=== PATIENT | male | born 1940 | race American Indian/Alaskan Native ===

== ENCOUNTER 2017-12-19 06:50 | Day surgery (SDC) | payer MEDICARE ==
[2017-12-19] MEDS ORDERED: NACL 0.9% 500 ML 500 ML IV SCH (08:00)
[2017-12-19 08:04] LABS: Basophils % (Auto) 0.4 % (0.0-1.8); Eosinophils # (Auto) 0.1 K/mm3 (0.0-0.4); Eosinophils % (Auto) 1.4 % (0.0-4.3); Hematocrit 34.4 % (35.5-45.6); Hemoglobin 11.4 gm/dl (11.8-15.2); Lymphocytes # (Auto) 1.1 K/mm3 (1.2-5.4); Lymphocytes % (Auto) 24.8 % (13.4-35.0); Mean Corpuscular HGB Conc 33 % (32-34); Mean Corpuscular Volume 76 fl (84-94); Monocytes # (Auto) 0.4 K/mm3 (0.0-0.8); Platelet Count 219 K/mm3 (140-440); Red Blood Count 4.56 M/mm3 (3.65-5.03); Red Cell Distribution Width 14.8 % (13.2-15.2)
[2017-12-19 08:05] LABS: Mean Corpuscular Hemoglobin 25 pg (28-32)
[2017-12-19 08:15] LABS: INR 1.03 (0.87-1.13)
[2017-12-19 08:18] LABS: BUN/Creatinine Ratio 20; Blood Urea Nitrogen 10 mg/dL (9-20); Calcium 9.3 mg/dL (8.4-10.2); Hemolysis Index 1
[2017-12-19] MEDS ORDERED: VERSED ONE (09:13)
[2017-12-19] MEDS ORDERED: HEPARIN 10,000 UNITS/10 ML ONE (09:13)
[2017-12-19] MEDS ORDERED: SUBLIMAZE ONE (09:13)
[2017-12-19] MEDS ORDERED: HEPARIN/NS 5000 UNIT/500ML(CATH LAB) 1,000 ML IR ONE (09:13)
[2017-12-19] MEDS ORDERED: ANCEF/STERILE WATER 2 GM/20 ML 0 GM/0 ML SYRINGE IV ONE (09:14)
[2017-12-19] MEDS ORDERED: XYLOCAINE 2% INFILTRATI ONE (09:14)
[2017-12-19] MEDS ORDERED: HEPARIN/NS 5000 UNIT/500ML(CATH LAB) 500 ML IR ONE (09:35)
--- NOTE | 2017-12-19 10:30 | Short Stay Summary ---
Short Stay Documentation Date of service: 12/19/17 - History Past Medical History: acute DC, CAD, heart failure Past Surgical History: CABG, Other (aicd) Social history: no smoking, no alcohol abuse - Allergies and Medications Current Medications: Allergies No Known Allergies Allergy (Verified 12/19/17 07:31) Home Medications Medication Instructions Recorded Confirmed Last Taken Type Aspirin [Adult Low Dose Aspirin EC] 81 mg PO DAILY 10/10/16 12/19/17 12/19/17 History AtorvaSTATin [Lipitor] 80 mg PO DAILY 10/10/16 12/19/17 12/19/17 History Carvedilol [Coreg] 12.5 mg PO DAILY 10/10/16 12/19/17 12/19/17 History Furosemide [Lasix TAB] 40 mg PO QDAY 10/10/16 12/19/17 12/18/17 History Lisinopril [Zestril TAB] 5 mg PO QDAY 10/10/16 12/19/17 12/19/17 History Spironolactone [Aldactone] 25 mg PO QDAY 10/10/16 12/19/17 12/18/17 History amLODIPine [Norvasc] 10 mg PO DAILY 10/10/16 12/19/17 12/19/17 History Clopidogrel Bisulfate [Clopidogrel] 75 mg PO DAILY 12/19/17 12/19/17 12/19/17 History Ezetimibe [Ezetimibe] 10 mg PO DAILY 12/19/17 12/19/17 12/19/17 History Active Medications Sodium Chloride (Nacl 0.9% 500 Ml) 500 mls @ 50 mls/hr IV DIRECT YOHANA Stop: 12/19/17 17:59 Last Admin: 12/19/17 09:01 Dose: 50 mls/hr - Physical exam General appearance: no acute distress Integumentary: no rash HEENT: Atraumatic, PERRLA Lungs: Clear to auscultation Heart: Normal S1, Normal S2, Murmur (2/6) Gastrointestinal: normal, normoactive bowel sounds Male Genitourinary: deferred Rectal Exam: deferred Extremities: abnormal (decreased pt bilaterally) Neurological: Normal gait, Normal speech - Brief post op/procedure progress note Date of procedure: 12/19/17 Pre-op diagnosis: claudications Post-op diagnosis: same Procedure: see report Anesthesia: local Estimated blood loss: none Pathology: none - Disposition Condition at discharge: Good Disposition: DC-01 TO HOME OR SELFCARE - Discharge Diagnoses (1) S/P CABG x 4 Status: Chronic (2) PVD (peripheral vascular disease) with claudication Status: Acute (3) Ischemic cardiomyopathy Status: Chronic (4) Hypertension Status: Chronic Qualifiers: Hypertension type: essential hypertension Qualified Code(s): I10 - Essential (primary) hypertension (5) Hyperlipemia, mixed Status: Chronic Short Stay Discharge Plan Activity: advance as tolerated Diet: low fat, low cholesterol, low salt Wound: keep clean and dry Follow up with: DAVID GRAY MD [Primary Care Provider] - 7 Days
[2017-12-19 13:15] VITALS: BP 117/68
--- NOTE | 2017-12-19 15:03 | Cardiac Catherization Report ---
REFERRING PHYSICIAN: Eugene Clarke MD PROCEDURE: Peripheral angiogram DONE BY: Atif Hector MD CLINICAL INFORMATION: This is a 77-year-old -[place] female who has known coronary artery disease bypass, [id number] LV dysfunction, EF 25-30%, who is compensated and is on aspirin and Plavix. She has been getting claudication symptoms after 50 yards. Ultrasound shows bilateral SFAs occluded, right SFA as per the patient occurs more than left. Moderate sedation was done on the patient under supervision, 1 mg of Versed and 50 mcg of fentanyl, 25 minutes of supervised sedation was done. Sedation start time was 9:35 a.m. and finished at 10:00 a.m. PROCEDURE DETAILS: 1. Procedure was performed on the left common femoral artery, sterile technique, local anesthesia, 5-[place] groin sheath inserted. There was [id number] tortuosity in the iliac system, used an Advantage wire to get into the aorta and placed in a pigtail catheter, which revealed aorta patent; moderate tortuosity of the common iliacs, which are patent; moderate tortuosity, external iliacs are patent and internal iliacs are patent. Bilateral common femoral arteries were patent with calcification noted. 2. Exchanged out for a rim catheter and peripheral angiogram was done on the right lower extremity, which revealed right common iliac patent, external iliac patent, right common femoral artery patent. Extensive profunda feeding a calcified, heavy calcification of the right SFA, proximal at the ostial SFA is 100% via collaterals feeds into the proximal and mid, approximately 80 mm of occlusion, then a mid another 10 mm calcified SFA. Popliteal is calcified with a 50% and calcification noted into the TP trunk. Anterior tibial is 100%, peroneal is 100% and via collaterals feeds into the posterior tibial, which is patent all the way down to the foot. Multiple angiograms were done with different views. 3. Left SFA shows left common iliac artery patent with moderate tortuosity, also the patent left external iliac, internal iliac, moderate tortuosity. Left common femoral artery patent with calcification, mild dilatation. Left SFA ostial was 100% via a large profunda, feeds via collateralization of an occluded SFA proximal was 100%, then a calcified vessel, then another mid short occlusion. Distal is calcified, patent, popliteal patent, anterior tibial is 100% calcification going into the TP trunk, peroneal in the mid 100% and posterior tibial patent to the foot. 4. Unable to wire the SFA, a crossover because of rnajwgod-fl-hbxstn tortuosity, was unable for retrograde approach, 5-[place] catheter taken over guidewire. A 5-[place] groin sheath was taken out, manual pressure held, no hematoma, no bleeding. SUMMARY: 1. Tqltuqjo-ty-viyqja tortuosity of the common iliac system and external iliac systems are patent. 2. Right SFA is heavily calcified with occlusion at the ostium of the SFA, feeds via profunda collateralization and then the mid portion is also occluded, short occlusion, popliteal was patent, but 50% with anterior tibial 100%, peroneal mid 100% and posterior tibial patent, but calcified proximal portion of the vessels. 3. Left SFA is also occluded at the ostium and approximately 100 mm and then mid another 80 mm and calcified popliteal patent with posterior tibial patent with anterior tibial and peroneal both 100%. 4. In view of patient's severe LV dysfunction, we will treat medically at this time, and discussed in detail with the patient and patient's family. JOB# [id number] AARON/CR
== END 2017-12-19 15:30 | disposition home or self-care (01) ==
LOC: CATHLABREC 06:50
PROVIDERS: ATTEND Internal Medicine
DX: I70.219 Atherosclerosis of native arteries of extremities with intermittent claudication, unspecified extremity (principal); I25.10 Atherosclerotic heart disease of native coronary artery without angina pectoris; I25.2 Old myocardial infarction; E78.2 Mixed hyperlipidemia; Z79.01 Long term (current) use of anticoagulants; Z95.1 Presence of aortocoronary bypass graft; Z79.82 Long term (current) use of aspirin; Z79.899 Other long term (current) drug therapy
CPT/HCPCS: 36247; 36415; 75625; 75716; 80048; 85025; 85610; 85730; 99156; 99157; J1644; J2250; J3010; J7040; J0690; Q9967